=== PATIENT | male | born 1995 | race Caucasian/White ===

== ENCOUNTER 2020-07-19 12:09 | Emergency (ER) | payer SELFPAY ==
[~2020-07-19] VITALS: Ht 185.4 cm; Wt 127.0 kg
[2020-07-19 12:17] VITALS: Ht 185.4 cm; Wt 127.0 kg
[2020-07-19 13:16] LABS: BASOPHIL % 0.3 % (0-2); PLATELET COUNT 219 x10^3mcL (130-400); RED CELL DISTRIBUTION WIDTH 13.1 % (11.5-14.5)
[2020-07-19 13:39] LABS: ALBUMIN 3.5 g/dL (3.4-5.0); ALKALINE PHOSPHATASE 210 U/L (46-116); ALT/SGPT 82 U/L (16-63); AST/SGOT 37 U/L (15-37); BILIRUBIN TOTAL 0.5 mg/dL (0.20-1.00); CALCIUM 8.5 mg/dL (8.5-10.1); CARBON DIOXIDE 24.5 mmol/L (21-32); CHLORIDE SERUM 99 mmol/L (98-107); GFR1 > 60 mL/min; POTASSIUM SERUM 3.5 mmol/L (3.5-5.1); SODIUM SERUM 135 mmol/L (136-145); TOTAL PROTEIN, SERUM 7.1 g/dL (6.4-8.2)
[2020-07-19 13:47] LABS: GLUCOSE SERUM 530 mg/dL (74-106)
[2020-07-19 14:57] VITALS: BP 145/101
== END 2020-07-19 14:57 | disposition home or self-care (01) ==
LOC: ED 12:09
PROVIDERS: Student in an Organized Health Care Education/Training Program
DX: E11.65 Type 2 diabetes mellitus with hyperglycemia (principal); R55 Syncope and collapse
CPT/HCPCS: 82962; J1815; J7030